=== PATIENT | female | born 1995 | race Caucasian/White ===

== ENCOUNTER 2021-08-19 16:36 | Inpatient (IN) | payer BC, SELFPAY ==
[~2021-08-19 16:36] MED LIST: Bupivacaine 0.25% HCL 30 ML VIAL ONE
[2021-08-19 17:12] VITALS: BMI 29.7
[2021-08-19] MEDS ORDERED: Butorphanol Tartrate 1 MG/ML VIAL SLOW IVP PRN (17:45)
[2021-08-19] MEDS ORDERED: hydrALAZINE 20 MG/ML VIAL SLOW IVP PRN (17:45)
[2021-08-19] MEDS ORDERED: Lactated Ringer's 1,000 ML IV SCH ×2 (17:45)
[2021-08-19] MEDS ORDERED: Promethazine HCl 25 MG/ML VIAL IM PRN ×2 (17:45→20:18)
[2021-08-19] MEDS ORDERED: Ibuprofen 800 MG TAB PO PRN (17:45)
[2021-08-19] MEDS ORDERED: NS w/ Oxytocin 30 units 500 ML IV SCH (17:45)
[2021-08-19] MEDS ORDERED: Docusate 100 MG CAP PO PRN (17:45)
[2021-08-19] MEDS ORDERED: Ondansetron PF 4 MG/2 ML Vial IVP PRN ×2 (17:45→20:18)
[2021-08-19] MEDS ORDERED: HYDROcodone/Acetaminophen 5/325 mg Tablet PO PRN (17:45)
[2021-08-19] MEDS ORDERED: Lidocaine 1% (PF) 30 ML VIAL SC PRN (17:45)
[2021-08-19 18:33] LABS: Hemoglobin 13.1 g/dL (12.0-15.5); Mean Corpuscular HGB CONC 32.3 g/dL (32.0-36.0); Mean Corpuscular Hemoglobin 28.5 pg (27.0-33.0); Mean Corpuscular Volume 88.3 fl (81.6-98.3); Platelet Count 176 10x3/uL (150-450); RBC Distribution Width 13.2 % (11.5-14.5); White Blood Cell (WBC) Count 12.7 10x3/uL (3.5-10.5)
[2021-08-19 19:17] LABS: Hep B Surf Ag Non-Reactive S/CO (NonReactive); Syphilis Antibody Nonreactive (Nonreactive); Syphilis Antibody Index 0.03 S/CO (<1.00 Non-Reactive)
[2021-08-19 19:35] LABS: HBSAg Index 0.18 S/CO (0-0.99)
[2021-08-19] MEDS ORDERED: Fentanyl 2 mcg/Bup 0.1% Cadd 100 ML ONE (19:58)
[2021-08-19] MEDS ORDERED: diphenhydrAMINE 50 MG/ML VIAL IVP PRN (20:18)
[2021-08-19] MEDS ORDERED: ePHEDrine Sulfate 50 MG/10 ML VIAL SLOW IVP PRN (20:18)
[2021-08-19] MEDS ORDERED: Naloxone HCl 0.4 mg/ml Vial IVP PRN ×2 (20:18)
[2021-08-19] MEDS ORDERED: Acetaminophen 325 MG TAB PO PRN (20:18)
[2021-08-19] MEDS ORDERED: Lactated Ringer's 500 ML IV PRN (20:18)
[2021-08-19] MEDS ORDERED: Hydrocerin (Eucerin) Cream 120 gm Jar TOP PRN (20:18)
[2021-08-19] MEDS ORDERED: Communication Order-Pharmacy FS SCH (20:30)
[2021-08-19] MEDS ORDERED: Fentanyl 2 mcg/Bupivacaine 0.1% Cassette 100 ML EPIDURAL SCH (20:30)
[2021-08-19 21:20] LABS: HIV (1/2) Antibody/Antigen Non-Reactive (NonReactive); HIV 1/2 INDEX 0.11 S/CO (<1.00)
[2021-08-19 22:04] LABS: SARS-CoV-2 NAA Rapid Test Not Detected (NotDetected)
[2021-08-19] MEDS ORDERED: Misoprostol 200 MCG TAB ONE (22:46)
[2021-08-19] MEDS ORDERED: Methylergonovine 0.2 MG/ML VIAL ONE (22:46)
[2021-08-20] MEDS ORDERED: hydrALAZINE 20 MG/ML VIAL SLOW IVP PRN (04:14)
[2021-08-20] MEDS ORDERED: Boostrix 0.5 ML (Tdap) VIAL IM ONE (04:14)
[2021-08-20] MEDS ORDERED: Lanolin Ointment 7 GM TUBE TOP PRN (04:14)
[2021-08-20] MEDS ORDERED: Bisacodyl 10 MG SUPP PR PRN (04:14)
[2021-08-20] MEDS ORDERED: Milk Of Magnesia 30 ML UDCUP PO PRN (04:14)
[2021-08-20] MEDS ORDERED: Benzocaine-Menthol 82.5 ML CAN TOP PRN (04:14)
[2021-08-20] MEDS: Ibuprofen 800 MG TAB PO SCH ×3 (05:33→21:43)
[2021-08-20] MEDS: Prenatal Vitamin 1 TAB PO SCH (08:12)
[2021-08-20] MEDS: Docusate Calcium (SURFAK) 240 MG CAP PO SCH ×2 (08:12→21:43)
[2021-08-20] MEDS: Ferrous Sulfate 325 MG TAB PO SCH ×2 (13:31→15:54)
[2021-08-20 16:00] LABS: Hemoglobin 11.5 g/dL (12.0-15.5)
[2021-08-21] MEDS: Ibuprofen 800 MG TAB PO SCH ×3 (05:02→21:16)
[2021-08-21] MEDS: Ferrous Sulfate 325 MG TAB PO SCH ×2 (08:47→16:52)
[2021-08-21] MEDS: Docusate Calcium (SURFAK) 240 MG CAP PO SCH ×2 (08:48→21:16)
[2021-08-21] MEDS: Prenatal Vitamin 1 TAB PO SCH (08:48)
[2021-08-21] MEDS ORDERED: Measles/Mumps/Rubella 10 MCG/0.5 ML VIAL SC ONE (12:00)
[2021-08-22] MEDS: Ibuprofen 800 MG TAB PO SCH (05:02)
[2021-08-22 07:54] VITALS: BP 125/78; TEMP 98.6
== END 2021-08-22 11:10 | disposition home or self-care (01) | DRG 807 ==
LOC: CSHLD/OP 16:36 → CSHLD 18:17 → CSHPP 08-20 04:36
PROVIDERS: ADMIT Obstetrics & Gynecology; ATTEND Obstetrics & Gynecology
PROC: 10E0XZZ Delivery of Products of Conception, External Approach (ICD-10-PCS; principal; 2021-08-20)
PROC: 0HQ9XZZ Repair Perineum Skin, External Approach (ICD-10-PCS; 2021-08-20)
PROC: 0UQGXZZ Repair Vagina, External Approach (ICD-10-PCS; 2021-08-20)
DX: O70.1 Second degree perineal laceration during delivery (principal); Z37.0 Single live birth; Z20.822 Contact with and (suspected) exposure to COVID-19
CPT/HCPCS: 51702; 85014; 85018; 85027; 86780; 86850; 86900; 86901; 87340; 87389; 99285; J2590; S0020; U0002

== ENCOUNTER 2024-05-12 05:36 | Inpatient (IN) | payer BC ==
[2024-05-12 05:54] VITALS: BMI 30.7
[2024-05-12] MEDS ORDERED: Oxytocin 30 units/NS 500 ML 500 ML IV SCH ×3 (06:15→14:04)
[2024-05-12] MEDS ORDERED: Ondansetron PF 4 MG/2 ML Vial IVP PRN ×2 (06:15→14:04)
[2024-05-12] MEDS ORDERED: fentaNYL 50 mcg/mL 1 mL Vial SLOW IVP PRN (06:15)
[2024-05-12] MEDS ORDERED: HYDROcodone/Acetaminophen 5/325 mg Tablet PO PRN ×3 (06:15→14:04)
[2024-05-12] MEDS ORDERED: hydrALAZINE 20 MG/ML VIAL SLOW IVP PRN ×2 (06:15→14:04)
[2024-05-12] MEDS ORDERED: Lidocaine 1% (PF) 30 ML VIAL SC PRN (06:15)
[2024-05-12] MEDS ORDERED: Promethazine HCl 25 MG/ML VIAL IM PRN (06:15)
[2024-05-12] MEDS ORDERED: Ibuprofen 800 MG TAB PO PRN (06:15)
[2024-05-12 06:24] LABS: Hematocrit 38.2 % (34.9-44.5); Hemoglobin 12.8 g/dL (12.0-15.5); Mean Corpuscular HGB CONC 33.5 g/dL (32.0-36.0); Mean Corpuscular Hemoglobin 29.4 pg (27.0-33.0); Mean Corpuscular Volume 87.6 fL (81.6-98.3); Mean Platelet Volume 10.3 fL (7.4-10.4); Platelet Count 163 10x3/uL (150-450); RBC Distribution Width 13.3 % (11.5-14.5); Red Blood Cell (RBC) Count 4.36 10x6/uL (3.90-5.03); White Blood Cell (WBC) Count 8.1 10x3/uL (3.5-10.5)
[2024-05-12 07:05] LABS: Syphilis Antibody Nonreactive (Nonreactive); Syphilis Antibody Index 0.04 S/CO (<1.00 Non-Reactive)
[2024-05-12 07:09] LABS: HBsAg Index 0.15 S/CO (0-0.99); Hep B Surf Ag - L&D Non-Reactive S/CO (NonReactive)
[2024-05-12] MEDS: Oxytocin 30 units/NS 500 ML 500 ML IV SCH (07:23)
[2024-05-12] MEDS: Penicillin G Potassium 5 MILL.UNITS in Sodium Chloride 0.9% 100 ML IVPB SCH (07:23)
[2024-05-12] MEDS: Lactated Ringer's 1,000 ML IV SCH (07:26)
[2024-05-12] MEDS ORDERED: HYDROcodone/Acetaminophen 10/325 mg Tablet PO PRN (10:41)
[2024-05-12] MEDS ORDERED: Acetaminophen 325 MG TAB PO PRN (10:41)
[2024-05-12] MEDS: fentaNYL/Ropivacaine Epidural 100 ML ONE (11:20)
[2024-05-12] MEDS: Penicillin G 2.5 MILL.units 2.5 MILL.UNITS in Premix 1 BAG IVPB SCH (11:28)
[2024-05-12] MEDS ORDERED: Bupivacaine 0.25% HCL 30 ML VIAL ONE (13:00)
[2024-05-12] MEDS ORDERED: Milk Of Magnesia 30 ML UDCUP PO PRN (14:04)
[2024-05-12] MEDS ORDERED: Preparation H Ointment 28 GM TUBE PR PRN (14:04)
[2024-05-12] MEDS ORDERED: Bisacodyl 10 MG SUPP PR PRN (14:04)
[2024-05-12] MEDS ORDERED: diphenhydrAMINE 25 MG CAP PO PRN (14:04)
[2024-05-12] MEDS ORDERED: Lanolin Ointment 7 GM TUBE TOP PRN (14:04)
[2024-05-12] MEDS ORDERED: Boostrix 0.5 ML (Tdap) VIAL (>/=7 yrs of age) IM ONE (14:04)
[2024-05-12] MEDS ORDERED: Benzocaine-Menthol 82.5 ML CAN TOP PRN (14:04)
[2024-05-12] MEDS: Phytonadione Neonatal 1 MG/0.5 ML AMP ONE (16:08)
[2024-05-12] MEDS: Erythromycin Base 0.5% Oint 1 GM TUBE ONE (16:08)
[2024-05-12] MEDS: Ibuprofen 800 MG TAB PO SCH (16:08)
[2024-05-12] MEDS: Ferrous Sulfate 325 MG TAB PO SCH (17:49)
[2024-05-12] MEDS: Docusate 100 MG CAP PO SCH (21:47)
[2024-05-12] MEDS: HYDROcodone/Acetaminophen 5/325 mg Tablet PO PRN (21:47)
[2024-05-13] MEDS: Ibuprofen 800 MG TAB PO SCH (01:22)
[2024-05-13] MEDS ORDERED: HYDROcodone/Acetaminophen 10/325 mg Tablet PO PRN (06:31)
[2024-05-13] MEDS ORDERED: Acetaminophen 325 MG TAB PO PRN (06:31)
[2024-05-13] MEDS: Prenatal Vitamin 1 TAB PO SCH (07:53)
[2024-05-13 11:25] VITALS: BP 126/75; TEMP 98.7
== END 2024-05-13 14:35 | disposition home or self-care (01) | DRG 807 ==
LOC: CSHLD 05:36 → CSHPP 14:30
PROVIDERS: ADMIT Obstetrics & Gynecology; ATTEND Obstetrics & Gynecology
PROC: 10E0XZZ Delivery of Products of Conception, External Approach (ICD-10-PCS; principal; 2024-05-12)
PROC: 0KQM0ZZ Repair Perineum Muscle, Open Approach (ICD-10-PCS; 2024-05-12)
DX: O99.824 Streptococcus B carrier state complicating childbirth (principal); Z37.0 Single live birth; Z3A.39 39 weeks gestation of pregnancy; O70.1 Second degree perineal laceration during delivery
CPT/HCPCS: 51702; 85027; 86780; 86850; 86900; 86901; 87340; J0665; J2540; J2590; J7120